=== PATIENT | male | born 1950 | race Caucasian/White ===

== ENCOUNTER 2016-12-10 21:11 | Inpatient (IN) | payer MEDICARE ==
[~2016-12-10] VITALS: Ht 182.9 cm; Wt 64.9 kg
--- NOTE | 2016-12-10 21:38 | NUR ---
66 YO MALE [facility] ON [address]. PT NEEDS MEDICAL CLEARANCE FOR PSYCH ADMISSION. PT AMBULATED TO ER BED WITH STEADY GAITY NAD NOTED, SKIN WARM AND DRY, WILL CONITUE TO MONITOR
--- NOTE | 2016-12-10 21:40 | NUR ---
MANAGER OF PMO AT BED SIDE FOR BLOOD DRAW
[2016-12-10 21:48] LABS: BASOPHILS % (AUTO) 0.5 % (0.0-2.0); EOSINOPHILS # (AUTO) 0.1 /CMM (0.0-0.7); EOSINOPHILS % (AUTO) 1.4 % (0.0-6.0); HEMATOCRIT 38 % (39-51); HEMOGLOBIN 12.9 g/dL (13.5-17.5); LYMPHOCYTES # (AUTO) 1.8 /CMM (0.8-4.8); LYMPHOCYTES % (AUTO) 18.9 % (20.0-44.0); MEAN CORPUSCULAR HEMOGLOBIN 29 PG (26.0-33.0); MEAN CORPUSCULAR HGB CONC 34 g/dl (31.0-36.0); MEAN CORPUSCULAR VOLUME 86 fL (80-96); MONOCYTES # (AUTO) 0.8 /CMM (0.1-1.30); MONOCYTES % (AUTO) 8.3 % (2.0-12.0); NEUTROPHILS # (AUTO) 6.6 /CMM (1.8-8.9); NEUTROPHILS % (AUTO) 70.9 % (43.0-81.0); PLATELET COUNT (AUTO) 180 /CMM (150-450); RDW COEFFICIENT OF VARIATION 13.6 (11.5-15.0); WHITE BLOOD COUNT (AUTO) 9.3 K/uL (4.3-11.0)
[2016-12-10 21:58] LABS: CALCIUM, SERUM 10.4 mg/dL (8.5-10.1); CARBON DIOXIDE 27 mmol/L (21-32); CHLORIDE 105 mmol/L (98-107); CREATININE 1.6 mg/dL (0.6-1.3); GLUCOSE 84 mg/dL (74-106); POTASSIUM 3.8 mmol/L (3.5-5.1); SODIUM SERUM 138 mmol/L (136-145); UREA NITROGEN, BLOOD 28 mg/dL (7-18)
[2016-12-10 22:14] LABS: ALANINE AMINOTRANSFERASE 17 U/L (12-78); ALBUMIN 3.4 g/dL (3.4-5.0); ALCOHOL, BLOOD < 3 mg/dL (0-0); ALKALINE PHOSPHATASE 71 U/L (46-116); ASPARTATE AMINOTRANSFERASE 36 U/L (15-37); BILIRUBIN,DIRECT 0.1 mg/dL (0.0-0.2); BILIRUBIN,TOTAL 0.6 mg/dL (0.2-1.0); TOTAL PROTEIN, SERUM 6.9 g/dL (6.4-8.2)
[2016-12-10 22:15] LABS: ACETAMINOPHEN 0 ug/ml (10-30); SALICYLATE 0.2 mg/dL (2.8-20.0)
--- NOTE | 2016-12-10 23:05 | NUR ---
REPORT GIVEN TO ALFREDO BLACK FOR GREG
--- NOTE | 2016-12-10 23:45 | NUR ---
ADMITTED 66 Y/O MALE FROM [facility] AND MEDICALLY CLEARED AT [facility] ER, ON [address], BASED ON HOLD, PATIENT IS UNABLE TO FORMULATE PLAN TO ACCESS FOOD, CLOTHING OR [facility] DUE TO MENTAL HEALTH SYMPTOMS, HE IS UNABLE TO ACCEPT SERVICES OFFER. WITH ADMITTING DX. OF PSYCHOSIS AND NO MEDICAL HISTORY. UPON FACE TO FACE EVALUATION, PATIENT APPEARED ALERT AND ORIENTED X 1, CONFUSED, ANXIOUS, COOPERATIVE DURING ADMISSION PROCESS AND MUMBLE WORDS. HEAD TO TOE ASSESSMENT DONE. NO SOB, NO ACUTE DISTRESS,BREATHING EVEN AND UNLABORED, NO S/S OF PAIN AND DISCOMFORT, FULL CODE, NKA AND AMBULATORY(STEADY GAIT). BELONGINGS INSPECTED, COLLECTED AND PLACED TO SAFE. NOTIFIED DR. MCARTHUR OF THE ADMISSION. KEPT CLEAN, DRY AND COMFORTABLE, WILL CONTINUE TO MONITOR [id number] FOR SAFETY.
[2016-12-11] MEDS ORDERED: TEMAZEPAM 7.5 MG CAPSULE PO PRN (00:30)
[2016-12-11] MEDS ORDERED: MAG HYDROX/AL HYDROX/SIMETH 30 ML UDC PO PRN (00:30)
[2016-12-11] MEDS ORDERED: MAGNESIUM HYDROXIDE 30 ML UDC PO PRN (00:30)
[2016-12-11] MEDS ORDERED: ACETAMINOPHEN 325 MG TABLET PO PRN (00:30)
[2016-12-11] MEDS ORDERED: LORAZEPAM 0.5 MG TABLET PO PRN (00:30)
[2016-12-11 01:04] VITALS: BP 109/76
[2016-12-11 07:31] LABS: CREATININE 1.4 mg/dL (0.6-1.3)
[2016-12-11 07:35] LABS: CHOLESTEROL 129 mg/dL (<200); HDL CHOLESTEROL 37 mg/dL (40-60); LDL 75 mg/dL (0-99); TRIGLYCERIDES 43 mg/dL (30-150)
[2016-12-11 08:00] VITALS: BP 101/56
--- NOTE | 2016-12-11 09:49 | NUR ---
Dr. Fiore seen and examined pt. and ordered, Erythromycin ointment q4hrs.
[2016-12-11] MEDS: ERYTHROMYCIN BASE OPHTH 3.5 GM TUBE EACHEYE SCH ×3 (11:55→20:29)
[2016-12-11] MEDS ORDERED: OLANZAPINE 5 MG/TAB.RAPDIS PO PRN (15:00)
[2016-12-11 16:00] VITALS: BP 117/58
[2016-12-11] MEDS: OLANZAPINE 5 MG/TAB.RAPDIS PO SCH (16:08)
[2016-12-11 20:00] VITALS: BP 115/56
[2016-12-12] MEDS: ERYTHROMYCIN BASE OPHTH 3.5 GM TUBE EACHEYE SCH ×6 (01:13→20:51)
[2016-12-12 08:00] VITALS: BP 123/53
[2016-12-12] MEDS: NICOTINE PATCH (14MG) 14 MG PATCH.TD24 TD SCH (08:33)
[2016-12-12] MEDS: OLANZAPINE 5 MG/TAB.RAPDIS PO SCH ×2 (08:33→16:27)
[2016-12-12] MEDS ORDERED: OLANZAPINE 5 MG/TAB.RAPDIS PO ONE (12:30)
--- NOTE | 2016-12-12 14:46 | NUR ---
Initial discharge plan: Pt. is currently homeless and needs a placement. SW will find an appropriate facility.SW spoke with Katelyn Monterroso, case liner from [facility] [phone] and Pt. also has an option to go to [facility] on [address] [place] [address] fax [phone]. The contact lens polisher for the facility is Mildred Estrada. RAHUL will follow up with and per MD recommendation, SW will arrange proper placement. SW will help form a safe and proper discharge.
--- NOTE | 2016-12-12 15:58 | NUR ---
Pt. was referred to [facility] [address] [place] [address]
[2016-12-12 17:00] VITALS: BP 112/62
[2016-12-12] MEDS ORDERED: OLANZAPINE 5 MG/TAB.RAPDIS PO SCH (17:00)
[2016-12-12 20:00] VITALS: BP 133/65
[2016-12-13] MEDS: ERYTHROMYCIN BASE OPHTH 3.5 GM TUBE EACHEYE SCH ×6 (01:00→21:14)
[2016-12-13 08:00] VITALS: BP 115/75
[2016-12-13] MEDS: NICOTINE PATCH (14MG) 14 MG PATCH.TD24 TD SCH (08:38)
[2016-12-13] MEDS: OLANZAPINE 5 MG/TAB.RAPDIS PO SCH ×2 (08:38→16:53)
[2016-12-13 16:28] VITALS: BP 103/57
--- NOTE | 2016-12-13 19:23 | NUR ---
GPS/RN NOTE: PATIENT RECEIVED IN BED, RESTING, COMFORTABLE, CONFUSED. NO APPARENT DISTRESS NOTED.
[2016-12-13 20:00] VITALS: BP 118/61
[2016-12-14] MEDS: ERYTHROMYCIN BASE OPHTH 3.5 GM TUBE EACHEYE SCH ×6 (01:21→21:32)
[2016-12-14] MEDS: NICOTINE PATCH (14MG) 14 MG PATCH.TD24 TD SCH (08:14)
[2016-12-14] MEDS: OLANZAPINE 5 MG/TAB.RAPDIS PO SCH ×2 (08:14→17:34)
[2016-12-14 09:30] VITALS: BP 120/70
[2016-12-14 16:37] VITALS: BP 133/54
[2016-12-14 20:15] VITALS: BP 110/54
[2016-12-15] MEDS: ERYTHROMYCIN BASE OPHTH 3.5 GM TUBE EACHEYE SCH ×6 (01:01→21:23)
[2016-12-15] MEDS: NICOTINE PATCH (14MG) 14 MG PATCH.TD24 TD SCH (07:50)
[2016-12-15] MEDS: OLANZAPINE 5 MG/TAB.RAPDIS PO SCH ×2 (07:50→16:31)
[2016-12-15 08:00] VITALS: BP 138/59
[2016-12-15 16:00] VITALS: BP 137/51
[2016-12-15 20:28] VITALS: BP 117/60
[2016-12-16] MEDS: ERYTHROMYCIN BASE OPHTH 3.5 GM TUBE EACHEYE SCH ×6 (01:15→21:00)
[2016-12-16 08:00] VITALS: BP 119/50
[2016-12-16] MEDS: OLANZAPINE 5 MG/TAB.RAPDIS PO SCH ×2 (08:27→16:45)
[2016-12-16] MEDS: NICOTINE PATCH (14MG) 14 MG PATCH.TD24 TD SCH (08:28)
--- NOTE | 2016-12-16 15:59 | NUR ---
Akil from [facility] [id number] [place] [address] came to assess the patient. Per Akil, pt can be accepted. Will follow up with CJ at the facility.
[2016-12-16 16:00] VITALS: BP 142/89
--- NOTE | 2016-12-16 19:30 | NUR ---
GPS RN NOTE, RECEIVED PATIENT AWAKE AND IN BED, NO S/S OR COMPLAINTS OF PAIN AT THIS TIME. PATIENT IS DISPLAYING NO S/S OF APPARENT DISTRESS AT THIS TIME. PATIENT BREATHING IS UNLABORED WITH EQUAL RISE AND FALL OF THE CHEST. PATIENT IS ALERT AND ORIENTED X 2 ON ROOM AIR WITH A SPO2 95%. PATIENT COMPLAINT WITH MEDICATION, ANXIOUS, COOPERATIVE, CONFUSED AT TIMES, ISOLATIVE, POOR INSIGHT, POOR JUDGMENT, MUMBLES, AND NEEDS REORIENTATION. PATIENT DENIES SUICIDE AND HOMICIDAL IDEATIONS AT THIS TIME. PATIENT ASSISTED WITH TURNING AND REPOSITIONING Q2HR AND PRN FOR COMFORT AND CIRCULATION. PATIENT HAS NO NEEDS AT THIS TIME. PATIENT EDUCATED ON THE USE OF THE CALL MELISSA. PATIENT BED SIDE RAILS UP X2 FOR SAFETY, BED IS LOCKED AND LOW WILL CONTINUE TO MONITOR AND MAINTAIN SAFETY.
[2016-12-16 19:54] VITALS: BP 134/83
--- NOTE | 2016-12-16 21:13 | NUR ---
GPS RN NOTE, PATIENT REFUSED ERYTHROMYCIN EYE OINT EACH EYE Q4HR GAYATRI. OFFERED MEDICATION THREE TIMES BUT STILL PATIENT REFUSED STATING," MY EYES ARE FINE I DON'T NEED THAT ". EDUCATED THE PATIENT ON THE RISK AND BENEFITS OF TAKING AND REFUSING AFOREMENTIONED MEDICATION. WILL CONTINUE TO MONITOR THIS PATIENT.
[2016-12-17] MEDS: ERYTHROMYCIN BASE OPHTH 3.5 GM TUBE EACHEYE SCH ×4 (01:51→13:00)
[2016-12-17 08:00] VITALS: BP 121/84
[2016-12-17] MEDS: NICOTINE PATCH (14MG) 14 MG PATCH.TD24 TD SCH (08:18)
[2016-12-17] MEDS: OLANZAPINE 5 MG/TAB.RAPDIS PO SCH ×2 (08:19→17:42)
[2016-12-17 16:00] VITALS: BP 138/77
--- NOTE | 2016-12-17 16:21 | NUR ---
RAHUL was contacted by CJ from [facility] [id number] [place] [address] requesting paperwork that shows patient is compliant with medications. RAHUL faxed.
[2016-12-17 20:02] VITALS: BP 170/95
[2016-12-18] MEDS: OLANZAPINE 5 MG/TAB.RAPDIS PO SCH ×2 (08:11→16:08)
[2016-12-18 08:45] VITALS: BP 106/62
--- NOTE | 2016-12-18 13:03 | NUR ---
SHAYNA from [facility] [address] [place] [address] requested paperwork about pt's behavior and SW faxed.
[2016-12-18 16:19] VITALS: BP 105/52
--- NOTE | 2016-12-18 19:30 | NUR ---
RN NOTES RECEIVED PT. AWAKE ON BED, NOT IN DISTRESS, WILL CONTINUE TO MONITOR
[2016-12-18 20:00] VITALS: BP 101/50
[2016-12-19 08:00] VITALS: BP 107/60
[2016-12-19] MEDS: OLANZAPINE 5 MG/TAB.RAPDIS PO SCH (09:20)
--- NOTE | 2016-12-19 11:22 | NUR ---
CJ from [facility] [address] [place] [address] confirmed that pt. can be accepted. Pt. will be discharged to [facility] today.
--- NOTE | 2016-12-19 11:23 | NUR ---
Discharge note: Pt. will discharge to [facility] [id number] [place] [address] via [facility] today at 2:00PM. Pt's case reviewer Katelyn Loc [phone] was notified via voicemail. Pt. agreed with the discharge plan and was calm and cooperative and denied suicidal/homicidal ideations. Pt. will follow up with Dr. Mitchell at the facility to address substance abuse on December 26, at 9:30am. Discharge report has been provided to the accepting facility by pt's RN, and discharge paperwork has been signed.
--- NOTE | 2016-12-19 13:26 | NUR ---
GPS/RN REPORT GIVEN TO JEY ORR @ [facility] [address] [place] [address] AT 1100 AM TODAY. PRESCRIPTIONS FAXED REQUESTED. PT REFUSED PICTURES ON D/C AND TO SIGN D/C PAPERWORK. NO SI OR HI NOTED.VSS NO ACUTE DISTRESS NO C/O PAIN REPORTED
--- NOTE | 2016-12-19 13:55 | NUR ---
GPS/RN PT LEFT [facility]
== END 2016-12-19 13:55 | DRG 885 ==
LOC: ER 21:16 → GPS 23:12
PROVIDERS: ADMIT Psychiatry & Neurology Psychosomatic Medicine; ATTEND Family Medicine
DX: F29 Unspecified psychosis not due to a substance or known physiological condition (principal); N17.0 Acute kidney failure with tubular necrosis; G93.40 Encephalopathy, unspecified; E86.0 Dehydration; Z59.0 Homelessness; F20.9 Schizophrenia, unspecified; Z73.6 Limitation of activities due to disability; F19.10 Other psychoactive substance abuse, uncomplicated
CPT/HCPCS: 36415; 70450-TC; 80048-TC; 80061-TC; 80076-TC; 82565-TC; 85025-TC; 87081-TC; A4606; G0480; Z7610

== ENCOUNTER 2023-04-28 21:39 | Emergency (ER) | payer MEDICARE, OTHER ==
[~2023-04-28] VITALS: Ht 177.8 cm; Wt 68.0 kg
[2023-04-28] MEDS ORDERED: TDAP [DIPH/PERTUSSIS/TET] 0.5 ML VIAL IM ONE (22:29)
[2023-04-28] MEDS: TDAP [DIPH/PERTUSSIS/TET] 0.5 ML VIAL IM ONE (22:33)
[2023-04-29 00:43] VITALS: BP 125/70; TEMP 98.5; O2SAT 98
== END 2023-04-29 00:43 ==
LOC: ER 21:44
DX: S01.01XA Laceration without foreign body of scalp, initial encounter (principal); N18.9 Chronic kidney disease, unspecified; G20.A1 Parkinson's disease without dyskinesia, without mention of fluctuations; E78.5 Hyperlipidemia, unspecified; J44.9 Chronic obstructive pulmonary disease, unspecified; E03.9 Hypothyroidism, unspecified; Z88.0 Allergy status to penicillin; Z88.8 Allergy status to other drugs, medicaments and biological substances; W18.30XA Fall on same level, unspecified, initial encounter; Y93.89 Activity, other specified; Y92.89 Other specified places as the place of occurrence of the external cause; Y99.8 Other external cause status
CPT/HCPCS: 70450-TC; 72125-TC; 90715